=== PATIENT | male | born 1945 | race Two or more races ===

== ENCOUNTER 2025-09-09 11:58 | Emergency (ER) | payer OTHER ==
[~2025-09-09] VITALS: Ht 182.9 cm; Wt 100.0 kg
[2025-09-09 12:30] VITALS: PULSE 89; RESP 12; O2SAT 94
--- NOTE | 2025-09-09 13:21 | DVH ---
CLINICAL INDICATION: right foot pain TECHNIQUE: 3 radiographic views of the right foot were obtained. 2 views of the right ankle were obtained. Comparison: XY R ANKLE 2 VIEW XRAY on DOS: 09/09/25 FINDINGS/IMPRESSION: Mildly displaced fracture of the distal fibula and chronic medial malleolus fracture. Small plantar and posterior calcaneal enthesophytes.
--- NOTE | 2025-09-09 13:21 | DVH ---
CLINICAL INDICATION: right foot pain TECHNIQUE: 3 radiographic views of the right foot were obtained. 2 views of the right ankle were obtained. Comparison: XY R FOOT 3 VIEW XRAY on DOS: 09/09/25 FINDINGS/IMPRESSION: Mildly displaced fracture of the distal fibula and chronic medial malleolus fracture. Small plantar and posterior calcaneal enthesophytes.
[2025-09-09 13:35] LABS: Hematocrit 49.4 % (41.0-53.0); Hemoglobin 16.8 g/dL (13.5-17.5); Mean Corpuscular Hemoglobin 29.1 pg (28.0-32.0); Mean Corpuscular Volume 85.5 fL (80.0-100.0); Nucleated Red Blood Cells % 0.1 %
[2025-09-09 13:46] LABS: Potassium 4.8 mmol/L (3.5-5.1)
[2025-09-09 13:47] LABS: Anion Gap 10 (5-15); Carbon Dioxide 26 mmol/L (20-31)
[2025-09-09 13:48] LABS: Calcium 9.9 mg/dL (8.7-10.4)
[2025-09-09 13:50] LABS: INR 1.25 (0.9-1.15); Partial Thromboplastin Time 39.3 SEC (24.5-34.5); Prothrombin Time 13.0 sec (9.3-11.8)
[2025-09-09 13:51] LABS: Chloride 98 mmol/L (98-107); Sodium 134 mmol/L (136-145)
[2025-09-09 13:53] LABS: BUN/Creatinine Ratio 34.3 (10.0-20.0)
[2025-09-09 13:55] LABS: Blood Urea Nitrogen 34 mg/dL (9-23)
[2025-09-09 14:00] LABS: Glucose 157 mg/dL (74-106)
[2025-09-09] MEDS: HYDROmorphone HCL 2 MG/ML VL/or syr IV ONE (17:52)
[2025-09-09] MEDS: SODIUM CHLORIDE 0.9% 1,000 ML IV ONE (17:52)
[2025-09-09] MEDS: ONDANSETRON HCL 4 MG/2 ML VIAL IV ONE (17:53)
[2025-09-09 19:30] VITALS: BP 120/75; PULSE 78; RESP 13; TEMP 98.1; O2SAT 98
--- NOTE | 2025-09-10 11:12 | ED.PDOC ---
Musculoskeletal HPI Comments This is a 79 year old male SOFIA presenting to the ED with chief complaint of right ankle pain. EMS reports patient is coming from [facility] due to a right ankle injury sustained after a fall a week ago. EMS relays patient was initially evaluated by [facility] where no fracture was found to the right ankle and patient was discharged with patient placed into physical therapy. EMS states patient had continued to have pain to the right ankle and once an repeat XR was performed, a fracture was found. Patient is unable to ambulate on his own due to the pain. Patient denies any numbness, weakness, further injury, chest pain, or SOB. Chief Complaint: Lower Extremity Time Seen by MD: 12:51 Reviewed Notes: Nurses Notes, Wool Puller Notes, Medications, Allergies Allergies: Coded Allergies: NO KNOWN ALLERGIES (Unverified , 09/09/25) Information Source: Patient, Emergency Med Personnel Mode of Arrival: EMS Location: Right Extremity Location: Ankle Timing: Days Prehospital treatment: None Severity: Moderate Able to Move Extremity: No Bear Weight: No Pain: Moderate Mechanism: Spontaneous Circumstances: Fall Onset of Symptoms: After Trauma Symptoms: Pain DVT Risk Factors: NONE Last Tetanus: Unknown Associated signs and symptoms: Ankle pain Past Medical History PAST MEDICAL HISTORY: CHF, CVA, DM Surgical History: Denies all surgeries Family History Family History: Reviewed,noncontributory to illness Social History Smoker: Non-Smoker Alcohol: Denies ETOH Use Drugs: Denies Drug Use Lives In: Home Constitutional: denies: chills, diaphoresis, fatigue, fever, malaise, sweats, weakness, others EENTM: denies: blurred vision, double vision, ear bleeding, ear discharge, ear drainage, ear pain, ear ringing, eye pain, eye redness, hearing loss, mouth pain, mouth swelling, nasal discharge, nose bleeding, nose congestion, nose pain, photophobia, tearing, throat pain, throat swelling, voice changes, others Respiratory: denies: cough, hemoptysis, orthopnea, SOB at rest, shortness of breath, SOB with excertion, stridor, wheezing, others Cardiovascular: denies: chest pain, dizzy spells, diaphoresis, Dyspnea on exertion, edema, irregular heart beat, left arm pain, lightheadedness, palpitations, PND, syncope, others Gastrointestinal: denies: abdomen distended, abdominal pain, blood streaked bowels, constipated, diarrhea, dysphagia, difficulty swallowing, hematemesis, melena, nausea, poor appetite, poor fluid intake, rectal bleeding, rectal pain, vomiting, others Genitourinary: denies: burning, dysuria, flank pain, frequency, hematuria, incontinence, penile discharge, penile sore, pain, testicle pain, testicle swelling, urgency, others Neurological: denies: dizziness, fainting, headache, left sided numbness, left sided weakness, numbness, paresthesia, pre-existing deficit, right sided numbness, right sided weakness, seizure, speech problems, tingling, tremors, weakness, others Musculoskeletal: reports: others (Rt ankle pain); denies: back pain, gout, joint pain, joint swelling, muscle pain, muscle stiffness, neck pain Integumetry: denies: bruises, change in color, change in hair/nails, dryness, laceration, lesions, lumps, rash, wounds, others Allergic/Immunocompromised: denies: Difficulty Healing, Frequent Infections, Hives, Itching, others Hematologic/Lymphatic: denies: anemia, blood clots, easy bleeding, easy bruising, swollen glands, others Endocrine: denies: excessive hunger, excessive sweating, excessive thirst, excessive urination, flushing, intolerance to cold, intolerance to heat, unexplained weight gain, unexplained weight loss, others Psychiatric: denies: anxiety, bipolar disorder, depression, hopeless, panic disorder, schizophrenia, sleepless, suicidal, others All Other Systems: Reviewed and Negative Physical Exam General Appearance: No Apparent Distress, Normal HEENT: Normal ENT Inspection, Pharynx Normal, TMs Normal Neck: Full Range of Motion, Non-Tender, Normal, Normal Inspection Respiratory: Chest Non-Tender, Lungs Clear, No Accessory Muscle Use, No Respiratory Distress, Normal Breath Sounds Cardiovascular: No Edema, No JVD, No Murmur, No Gallop, Normal Peripheral Pulses, Regular Rate/Rhythm Breast Exam: Deferred Gastrointestinal: No Organomegaly, Non Tender, No Pulsatile Mass, Normal Bowel Sounds, Soft Genitalia: Deferred Pelvic: Deferred Rectal: Deferred Extremities: No calf tenderness, Normal capillary refill, Normal inspection, Normal range of motion, Non-tender, No pedal edema Musculoskeletal : Location: Right Extremity Location: Ankle Apperance: Normal, Tenderness Neurologic: Alert, drug discovery informatics specialist II-XII nml as Tested, No Motor Deficits, Normal Affect, Normal Mood, No Sensory Deficits Cerebellar Function: Normal Reflexes: Normal Skin: Dry, Normal Color, Warm Lymphatic: No Adenopathy Was a procedure done? Was a procedure done?: No Differential Diagnosis EXT Differential Diagnosis: Sprain, Dislocation, Myocardial Infarction, Contusion X-Ray, Labs, Meds, VS Vital Signs Date Time Temp Pulse Resp B/P (MAP) Pulse Ox O2 Delivery O2 Flow Rate FiO2 09/09/25 17:54 98.3 78 15 103/63 (76) 96 98.3 09/09/25 17:52 78 15 103/63 09/09/25 15:22 98.4 91 13 106/72 (83) 96 98.4 09/09/25 12:30 98.3 89 12 120/77 (91) 94 98.3 09/09/25 12:30 89 12 94 Room Air* 0 21 09/09/25 12:07 98.3 90 16 138/80 95 98.3 Lab Test 09/09/25 13:12 Range/Units White Blood Count 8.4 4.4-10.8 10^3/uL Red Blood Count 5.78 4.5-5.90 10^6/uL Hemoglobin 16.8 13.5-17.5 g/dL Hematocrit 49.4 41.0-53.0 % Mean Corpuscular Volume 85.5 80.0-100.0 fL Mean Corpuscular Hemoglobin 29.1 28.0-32.0 pg Mean Corpuscular Hemoglobin Concent 34.0 32.0-36.0 g/dL Red Cell Distribution Width 14.3 11.8-14.3 % Platelet Count 203 140-450 10^3/uL Mean Platelet Volume 8.6 6.9-10.8 fL Neutrophils (%) (Auto) 72.1 37.0-80.0 % Lymphocytes (%) (Auto) 15.8 10.0-50.0 % Monocytes (%) (Auto) 8.7 0.0-12.0 % Eosinophils (%) (Auto) 2.5 0.0-7.0 % Basophils (%) (Auto) 0.9 0.0-2.0 % Neutrophils # (Auto) 6.1 1.6-8.6 10 ^3/uL Lymphocytes # (Auto) 1.3 0.4-5.4 10 ^3/uL Monocytes # (Auto) 0.7 0-1.3 10 ^3/uL Eosinophils # (Auto) 0.2 0-0.8 10 ^3/uL Basophils # (Auto) 0.1 0-0.2 10 ^3/uL Nucleated Red Blood Cells 0.1 % Prothrombin Time 13.0 H 9.3-11.8 sec Prothrombin Time INR 1.25 H 0.9-1.15 Activated Partial Thromboplast Time 39.3 H 24.5-34.5 SEC Sodium Level 134 L 136-145 mmol/L Potassium Level 4.8 3.5-5.1 mmol/L Chloride Level 98 98-107 mmol/L Carbon Dioxide Level 26 20-31 mmol/L Anion Gap 10 5-15 Blood Urea Nitrogen 34 H 9-23 mg/dL Creatinine 0.99 0.700-1.30 mg/dL Glomerular Filtration Rate Calc 78 >90 mL/min BUN/Creatinine Ratio 34.3 H 10.0-20.0 Serum Glucose 157 H 74-106 mg/dL Calcium Level 9.9 8.7-10.4 mg/dL Current Medications Medications (Trade) Dose Ordered Sig/Indira Route Start Time Stop Time Status Last Admin Sodium Chloride 1,000 ml @ 1,000 mls/hr Q1H ONCE IV 09/09/25 17:45 09/09/25 18:44 DC 09/09/25 17:52 [place] [id number] Ph: [phone] DIAGNOSTIC IMAGING Diagnostic Imaging Report : [id number] Signed PATIENT: JOSE DE JESUS HOSKINS ACCT: [id number] UNIT: [id number] : 1945 LOC: ER ROOM / BED: / AGE / SEX: 79 / M ADM STATUS: REG ER SERVICE 1241 ORDERING PHYSICIAN: HUGH GUILLEN MD PROCEDURE(s): RFOOT - R FOOT 3 VIEW XRAY REASON: right foot pain ORDER NUMBER(s): [id number], ACCESSION NUMBER(s): [id number] CLINICAL INDICATION: right foot pain TECHNIQUE: 3 radiographic views of the right foot were obtained. 2 views of the right ankle were obtained. Comparison: XY R ANKLE 2 VIEW XRAY on DOS: 09/09/25 FINDINGS/IMPRESSION: Mildly displaced fracture of the distal fibula and chronic medial malleolus fracture. Small plantar and posterior calcaneal enthesophytes. ATED BY: CELINA SILVA MD DICTATED DATE/TIME: 09/09/251318 SIGNED BY: CELINA SILVA MD SIGNED DATE/TIME: 09/09/251318 CC: [place] [id number] Ph: [phone] DIAGNOSTIC IMAGING Diagnostic Imaging Report : [id number] Signed PATIENT: JOSE DE JESUS HOSKINS ACCT: [id number] UNIT: [id number] : 1945 LOC: ER ROOM / BED: / AGE / SEX: 79 / M ADM STATUS: REG ER SERVICE 1241 ORDERING PHYSICIAN: HUGH GUILLEN MD PROCEDURE(s): RANK2 - R ANKLE 2 VIEW XRAY REASON: right foot pain ORDER NUMBER(s): [id number], ACCESSION NUMBER(s): [id number] CLINICAL INDICATION: right foot pain TECHNIQUE: 3 radiographic views of the right foot were obtained. 2 views of the right ankle were obtained. Comparison: XY R FOOT 3 VIEW XRAY on DOS: 09/09/25 FINDINGS/IMPRESSION: Mildly displaced fracture of the distal fibula and chronic medial malleolus fracture. Small plantar and posterior calcaneal enthesophytes. ATED BY: CELINA SILVA MD DICTATED DATE/TIME: 09/09/251318 SIGNED BY: CELINA SILVA MD SIGNED DATE/TIME: 09/09/251318 CC: Time of 1ST Reevaluation: 13:51 Reevaluation 1ST: Unchanged Patient Education/Counseling: Diagnosis, Treatment Family Education/Counseling: No Family Present Departure 1 Departure Time of Disposition: 19:24 (Patient with a [place] fracture. Discussed with [facility] and they will send patient back to [facility] and will coordinate surgery for him as an outpatient.) Impression: Primary Impression: Bimalleolar ankle fracture Disposition: 03 HALFWAY FACILITY Condition: Serious Additional Instructions: [facility] will coordinate with [facility] to schedule your surgery for repair of your ankle. You can take tylenol and motrin as needed for pain. Critical Care Note Critical Care Time?: No Stability Stability form required: No Heart Score Heart Score: Heart Score Response (Comments) Value History N/A 0 EKG N/A 0 Age N/A 0 Risk Factors N/A 0 Troponin N/A 0 Total 0 I personally scribed for HUGH GUILLEN MD ([email or web address]) on 09/09/25 at 12:54. Electronically submitted by Tono Martinez ([email or web address]). I personally scribed for HUGH GUILLEN MD ([email or web address]) on 09/09/25 at 17:24. Electronically submitted by Richard Hardy ([email or web address]). HUGH GUILLEN MD Sep 09, 2025 12:54
== END 2025-09-09 21:36 | disposition home or self-care (01) ==
LOC: ER 11:58 → EDBD 11:58 → ER 21:36
DX: S82.841A Displaced bimalleolar fracture of right lower leg, initial encounter for closed fracture (principal); I50.9 Heart failure, unspecified; E11.9 Type 2 diabetes mellitus without complications; Z86.73 Personal history of transient ischemic attack (TIA), and cerebral infarction without residual deficits; X58.XXXA Exposure to other specified factors, initial encounter; Y93.89 Activity, other specified; Y92.89 Other specified places as the place of occurrence of the external cause; Y99.8 Other external cause status
CPT/HCPCS: 29515; 36415; 73600; 73630; 80048; 85025; 85610; 85730; 96360; 99284; J7030

== ENCOUNTER 2025-10-12 17:55 | Emergency (ER) | payer OTHER ==
[~2025-10-12] VITALS: Ht 182.9 cm; Wt 90.1 kg
[2025-10-12 18:57] LABS: Hematocrit 49.6 % (41.0-53.0); Hemoglobin 16.8 g/dL (13.5-17.5); Mean Corpuscular Hemoglobin 29.1 pg (28.0-32.0); Mean Corpuscular Volume 86.0 fL (80.0-100.0); Nucleated Red Blood Cells % 0.1 %
[2025-10-12 19:04] LABS: Chloride 99 mmol/L (98-107); Potassium 4.9 mmol/L (3.5-5.1)
--- NOTE | 2025-10-12 19:04 | ED.PDOC ---
History of Present Illness HPI Comments 79-year-old male is brought in by ambulance from [facility] for chief complaint of poor appetite. Per EMS personnel report, patient has a significant history for AFib, CHF- on aspirin, CVA, DM, HLD, and HTN. Per ems, facility reports patient not eating food for the past day and wanting patient to be evaluated after testing positive for COVID, today. Patient, himself, has no complaints and it was commented by staff to be altered from his normal baseline, saying 'no' to inquiry questions. Additional recent history of previous fall and injury to right lower extremity 2 weeks ago, which he was already evaluated for. Patient has a current boot cast to right foot. Further history is limited, due to patient's current condition and absence of family/ranch helper historians. He denies any fever, cough, chest pain, shortness of breath, nausea, vomiting. Chief Complaint: General Weakness Time Seen by MD: 18:25 Reviewed Notes: Nurses Notes, Straddle Truck Operator Notes, Medications, Allergies Allergies: Coded Allergies: NO KNOWN ALLERGIES (Unverified , 09/09/25) Information Source: Patient, Emergency Med Personnel Mode of Arrival: EMS Severity: Moderate Timing: Days Duration: Since onset Prehospital treatment: 12 Lead EKG, Accucheck, Nurse Licensed Practical Past Medical History PAST MEDICAL HISTORY: AFIB, CHF (On aspirin), CVA, DM, High Lipids, HTN Surgical History: Denies all surgeries Family History Family History: Reviewed,noncontributory to illness Social History Smoker: Non-Smoker Alcohol: Denies ETOH Use Drugs: Denies Drug Use Lives In: Half-Way All Other Systems: Reviewed and Negative (Comprehensive review of systems are negative unless otherwise stated in HPI) Physical Exam General Appearance: No Apparent Distress, Normal, Other (Chronically ill- appearing) HEENT: Normal ENT Inspection, Pharynx Normal, TMs Normal Neck: Full Range of Motion, Non-Tender, Normal, Normal Inspection Respiratory: Chest Non-Tender, Lungs Clear, No Accessory Muscle Use, No Respiratory Distress, Normal Breath Sounds Cardiovascular: No Edema, No JVD, No Murmur, No Gallop, Normal Peripheral Pulses, Regular Rate/Rhythm Breast Exam: Deferred Gastrointestinal: No Organomegaly, Non Tender, No Pulsatile Mass, Normal Bowel Sounds, Soft Genitalia: Deferred Pelvic: Deferred Rectal: Deferred Extremities: No calf tenderness, Normal capillary refill, Normal range of motion, Non-tender, No pedal edema, Other (Cast boot on right lower extremity) Musculoskeletal : Apperance: Normal Neurologic: Alert, concrete bucket hooker II-XII nml as Tested, No Motor Deficits, Normal Affect, Normal Mood, No Sensory Deficits Cerebellar Function: Normal Reflexes: Normal Skin: Dry, Normal Color, Warm Lymphatic: No Adenopathy Was a procedure done? Was a procedure done?: No Differential Dx Considerations may include: UTI, URI, encephalitis, malnutrition, dehydration, electrolyte imbalance, failure to thrive, viral syndrome, ICH, brain mass, among others X-Ray, Labs, Meds, VS Vital Signs Date Time Temp Pulse Resp B/P (MAP) Pulse Ox O2 Delivery O2 Flow Rate FiO2 10/12/25 19:30 97.7 117 18 121/46 (71) 95 97.7 10/12/25 18:49 98.1 107 16 116/66 (83) 95 98.1 10/12/25 18:06 97.7 104 18 124/76 94 97.7 Lab Test 10/12/25 19:38 10/12/25 18:47 10/12/25 18:43 Range/Units Troponin I High Sensitivity 14 15 </=54 ng/L Influenza Type A Antigen Negative Negative Influenza Type B Antigen Negative Negative SARS-CoV-2 Antigen (Rapid) Positive *A NEGATIVE White Blood Count 8.5 4.4-10.8 10^3/uL Red Blood Count 5.77 4.5-5.90 10^6/uL Hemoglobin 16.8 13.5-17.5 g/dL Hematocrit 49.6 41.0-53.0 % Mean Corpuscular Volume 86.0 80.0-100.0 fL Mean Corpuscular Hemoglobin 29.1 28.0-32.0 pg Mean Corpuscular Hemoglobin Concent 33.8 32.0-36.0 g/dL Red Cell Distribution Width 15.2 H 11.8-14.3 % Platelet Count 224 140-450 10^3/uL Mean Platelet Volume 8.4 6.9-10.8 fL Neutrophils (%) (Auto) 69.7 37.0-80.0 % Lymphocytes (%) (Auto) 15.9 10.0-50.0 % Monocytes (%) (Auto) 14.0 H 0.0-12.0 % Eosinophils (%) (Auto) 0.1 0.0-7.0 % Basophils (%) (Auto) 0.3 0.0-2.0 % Neutrophils # (Auto) 5.9 1.6-8.6 10 ^3/uL Lymphocytes # (Auto) 1.4 0.4-5.4 10 ^3/uL Monocytes # (Auto) 1.2 0-1.3 10 ^3/uL Eosinophils # (Auto) 0 0-0.8 10 ^3/uL Basophils # (Auto) 0 0-0.2 10 ^3/uL Nucleated Red Blood Cells 0.1 % Sodium Level 132 L 136-145 mmol/L Potassium Level 4.9 3.5-5.1 mmol/L Chloride Level 99 98-107 mmol/L Carbon Dioxide Level 24 20-31 mmol/L Anion Gap 9 5-15 Blood Urea Nitrogen 48 H 9-23 mg/dL Creatinine 1.46 H 0.700-1.30 mg/dL Glomerular Filtration Rate Calc 49 >90 mL/min BUN/Creatinine Ratio 32.9 H 10.0-20.0 Serum Glucose 97 74-106 mg/dL Calcium Level 8.9 8.7-10.4 mg/dL B-Type Natriuretic Peptide 48.31 0-100 pg/mL Lipase 69 H 12-53 U/L X-Ray, Labs, Meds, VS Comment Patient is presenting from nursing facility for decreased p.o. intake in the setting of testing positive for COVID today. Patient had hypoxic and has no complaints at this time. His only complaint is feeling slightly fatigued,. Denies any chest pain, shortness of breath. Vital signs stable the patient otherwise well-appearing. Lab work (CBC, BMP) to evaluate for evidence of severe anemia, electrolyte abnormality including hypokalemia, hyperkalemia, hypernatremia, hyponatremia, hyperglycemia, hypoglycemia, etc. EKG and troponin to evaluate for evidence of arrhythmia, ACS, AMI CT head to evaluate for intracranial hemorrhage, large mass, acute infarct Chest x-ray to evaluate for pneumonia, pneumothorax, volume overload. Re-evaluate Social determinant surveillance affecting care: Social determinants of health that will affect the patient's care: Poor health literacy (additional time provided an explanation) Poor access to outpatient care/followup (provided outpatient resources) Time of Reevaluation: 19:05 Reevaluation 1ST: Unchanged Patient Education/Counseling: Diagnosis, Treatment Family Education/Counseling: No Family Present SEPSIS Sepsis Screen Date sepsis recognized/suspect: Oct 12, 2025 Time Sepsis recognized/suspect: 1805 Recent Procedure: No On Antibiotic Therapy: No Respiratory Rate >20: No Heart Rate >90: Yes Temp<36 C (96.8 F) or >38.3 C: No SBP <90 or MAP <65 mmHG: No New Acute Mental Status Change: No Is the patient on CPAP, BIPAP,: No Physician Orders Urinalysis (10/12/25 18:26) Chest Portable (10/12/25 18:26) Electrocardigram (10/12/25 18:26) Electrocardigram (10/12/25 19:26) Electrocardigram (10/12/25 21:26) Head Without Contrast (10/12/25 18:44) Vital Signs Date Time Temp Pulse Resp B/P (MAP) Pulse Ox O2 Delivery O2 Flow Rate FiO2 10/12/25 19:30 97.7 117 18 121/46 (71) 95 97.7 10/12/25 18:49 98.1 107 16 116/66 (83) 95 98.1 10/12/25 18:06 97.7 104 18 124/76 94 97.7 Laboratory Tests Test 10/12/25 18:43 White Blood Count 8.5 10^3/uL (4.4-10.8) Departure 1 Departure Time of Disposition: 21:12 (On reassessment, patient's symptoms improved. Labs and imaging unremarkable including troponin negative x2. Patient with a mild CINDY, per tolerating p.o. now. Symptoms most consistent with COVID, however no indication for admission at this time as patient is not hypoxic, no concern for sepsis, and is otherwise well-appearing. Will discharge back to facility.) Impression: Primary Impression: Generalized weakness Additional Impressions: COVID-19 CINDY (acute kidney injury) Disposition: 03 DETENTION FACILITY Condition: Stable Discharged With: Self Critical Care Note Critical Care Time?: No Stability Stability form required: No Heart Score Heart Score: Heart Score Response (Comments) Value History N/A 0 EKG N/A 0 Age N/A 0 Risk Factors N/A 0 Troponin N/A 0 Total 0 I personally scribed for JAGDISH NEUMANN MD ([email or web address]) on 10/12/25 at 19:04. Electronically submitted by Shaka Ortiz ([email or web address]). JAGDISH NEUMANN MD Oct 12, 2025 19:04
[2025-10-12 19:05] LABS: Anion Gap 9 (5-15); Calcium 8.9 mg/dL (8.7-10.4); Carbon Dioxide 24 mmol/L (20-31)
[2025-10-12 19:10] LABS: BUN/Creatinine Ratio 32.9 (10.0-20.0); Glucose 97 mg/dL (74-106)
[2025-10-12 19:12] LABS: Blood Urea Nitrogen 48 mg/dL (9-23); Lipase 69 U/L (12-53); Sodium 132 mmol/L (136-145)
[2025-10-12 19:27] LABS: COVID19 ANTIGEN SOFIA FIA POSITIVE (NEGATIVE)
[2025-10-12 19:30] VITALS: TEMP 97.7
--- NOTE | 2025-10-12 20:09 | DVH ---
CHEST RADIOGRAPH Indication: cough Technique: Single frontal view of the chest was obtained Comparison: None FINDINGS: Lines and Tubes: Sternal wire sutures in place. Lungs: No focal consolidation. Pleura: No effusion. No pneumothorax. Cardiomediastinal contours: Unremarkable Bones: No acute osseous abnormality. IMPRESSION: 1. No areas of atelectasis or pulmonary infiltrates.
--- NOTE | 2025-10-12 20:42 | DVH ---
CT HEAD WITHOUT CONTRAST INDICATION: [facility] EXAM DATE: 10/12/2025 08:05 PM COMPARISON: None RADIATION DOSE: CTDIvol: 63.82 mGy, DLP: 1145.85 mGy*cm PROCEDURE: CT scans of the head were obtained from the vertex to the skull base. Sagittal and coronal reconstructions were provided. All CT scans at this medical facility are performed using dose modulation techniques as appropriate to a performed exam including the following: Automated exposure control was utilized; adjustment of the MA and/or KV according to patient size; and use of iterative reconstruction technique. FINDINGS: Motion artifact degrades fine detail. There is tissue loss with gliosis/ encephalomalacia within the left parietal lobe suggesting chronic infarcts/insult. No acute territorial infarct, intracranial hemorrhage, or mass effect. There are global involutional changes with compensatory prominence of the ventricles and sulci. Patchy periventricular and subcortical white matter hypoattenuation is nonspecific but may be related to small vessel ischemic disease. Chronic deep cerebral lacunar infarcts. The orbits are normal. There is mild mucosal thickening within the maxillary antra and ethmoid air cells. The osseous structures are unremarkable. IMPRESSION: 1. No acute territorial infarct, intracranial hemorrhage, or mass effect. 2. Age-related involutional changes. Chronic changes as detailed. Comparison with prior outside imaging is suggested in assessing interval change. 3. If clinical symptoms persist, MRI may be beneficial in further evaluation.
[2025-10-12 21:26] VITALS: O2SAT 95
[2025-10-13 05:30] VITALS: BP 111/69; O2SAT 96
[2025-10-13 06:31] VITALS: PULSE 100; RESP 20
== END 2025-10-13 06:40 ==
LOC: EDBD 17:55 → ER 17:55
DX: U07.1 COVID-19 (principal); R53.1 Weakness; R42 Dizziness and giddiness; I11.0 Hypertensive heart disease with heart failure; N17.9 Acute kidney failure, unspecified; Z86.73 Personal history of transient ischemic attack (TIA), and cerebral infarction without residual deficits; Z79.899 Other long term (current) drug therapy
CPT/HCPCS: 36415; 70450; 71045; 80048; 83690; 83880; 84484; 85025; 87426; 87804